=== PATIENT | female | born 1965 | race Caucasian/White ===

== ENCOUNTER 2017-09-21 18:21 | Emergency (ER) | payer OTHER ==
[2017-09-21 19:00] VITALS: BP 157/99; PULSE 72; TEMP 98.1; BMI 25.9
--- NOTE | 2017-09-21 19:12 | PDOC ---
History of Present Illness - General History Source: Patient Exam Limitations: No Limitations - History of Present Illness Initial Comments: 09/21/17 19:42 The patient is a 52 year old female, with a significant past medical history of TIA s/p ASD and IVF filter, who presents to the emergency department with swelling to the right side of her face yesterday. The patient states the swelling has significantly improved since yesterday, however, reports her mother was concerned which prompted her to seek evaluation in the ED. She denies slurred speech. She denies any pain, redness or itching to the area. She denies use of new lotions, soaps, makeup, etc. The patient denies chest pain, shortness of breath, headache and dizziness. The patient denies fever, chills, nausea, vomit, diarrhea and constipation. \ The patient denies dysuria, frequency, urgency and hematuria. PAST MEDICAL HISTORY: TIA s/p ASD and IVF filter (5 years ago) FAMILY HISTORY: no pertinent history SOCIAL HISTORY: Pt lives with family MEDICATIONS: reviewed ALLERGIES: As per nursing notes Review of Systems: General: No fevers or chills, no weakness, no weight loss HEENT: No change in vision. No sore throat,. No ear pain CardioVascular: No chest pain or shortness of breath Respiratory:No cough, or wheezing. Gastrointestinal: no nausea, vomiting, diarrhea or constipation, No rectal bleeding Genitourinary: No dysuria, hematuria, or frequency Musculoskeletal: No joint or muscle pain or swelling Neurologic: No headache, vertigo, dizziness or loss of consciousness Psychiatric: nor depression Skin: No rashes or easy bruising Endocrine: no increased thirst or abnormal weight change Allergic: no skin or latex allergy All other systems reviewed and normal Physical Exam: GENERAL: The patient is awake, alert, and fully oriented, in no acute distress. HEAD: (+) Mild swelling of the right cheek area. No increase in warmth. No erythema. No tenderness. No signs of trauma. EYES: Pupils equal, round and reactive to light, extraocular movements intact, sclera anicteric, conjunctiva clear. EXTREMITIES: Normal range of motion, no edema. NEUROLOGICAL: Normal speech, normal gait. PSYCH: Normal mood, normal affect. SKIN: Warm, Dry, normal turgor, no rashes or lesions noted. <Tejal Villar - Last Filed: 09/21/17 19:42> - General History Source: Patient Exam Limitations: No Limitations - History of Present Illness Initial Comments: A portion of this note was documented by scribe services under my direction. I have reviewed the details of the note, within reason, and agree with the documentation. The case summary and management plan written by me. 09/21/17 20:20 Assessment and plan: This is a 52-year-old female who comes in complaining of some facial swelling yesterday that has mostly resolved by today. Patient was concerned because she thought she saw some asymmetry of her face secondary to the swelling and wanted to make sure wasn't secondary to an underlying neurological problem as she has had a TIA in the past. Patient was reassured that the swelling was the cause of the facial asymmetry that there was no concern for a stroke as she had an ASD that was repaired as well as an IVC filter. There is no evidence or concern at this time for infection. Patient discharged and does have a primary care doctor she can follow-up with if the swelling gets worse she develops any redness or any evidence of an underlying infectious nature to the swelling <Meagan Rodriguez I - Last Filed: 09/21/17 20:22> - General Chief Complaint: Allergic Reaction Stated Complaint: RT SIDE FACIAL SWELLING Time Seen by Provider: 09/21/17 19:11 Past History <Tejal Villar - Last Filed: 09/21/17 19:42> - Past Medical History COPD: No - Suicide/Smoking/Psychosocial Hx Smoking History: Never smoked Have you smoked in the past 12 months: No Information on smoking cessation initiated: No Hx Alcohol Use: No Drug/Substance Use Hx: No Substance Use Type: None <Meagan Rodriguez I - Last Filed: 09/21/17 20:22> - Past Medical History Allergies/Adverse Reactions: Allergies Allergy/AdvReac Type Severity Reaction Status Date / Time No Known Allergies Allergy Verified 09/21/17 18:23 Home Medications: Ambulatory Orders Alprazolam [Xanax] 1 mg PO HS 09/21/17 Aspirin [ASA -] 81 mg PO DAILY 09/21/17 Atorvastatin Ca [Lipitor] 80 mg PO HS 09/21/17 *Physical Exam - Vital Signs Last Vital Signs Temp Pulse Resp BP Pulse Ox 98.1 F 72 20 157/99 97 09/21/17 18:22 09/21/17 18:22 09/21/17 18:22 09/21/17 18:22 09/21/17 18:22 <Tejal Villar - Last Filed: 09/21/17 19:42> - Vital Signs Last Vital Signs Temp Pulse Resp BP Pulse Ox 98.1 F 72 20 157/99 97 09/21/17 18:22 09/21/17 18:22 09/21/17 18:22 09/21/17 18:22 09/21/17 18:22 <Meagan Rodriguez I - Last Filed: 09/21/17 20:22> *DC/Admit/Observation/Transfer - Attestations Scribe Attestion: 09/21/17 19:42 Documentation prepared by Tejal Villar, acting as medical equipment repair technician for Meagan Rodriguez MD <Tejal Villar - Last Filed: 09/21/17 19:42> - Discharge Dispostion Admit: No <Meagan Rodriguez I - Last Filed: 09/21/17 20:22> Diagnosis at time of Disposition: Swelling, cheek - Discharge Dispostion Disposition: HOME Condition at time of disposition: Improved - Patient Instructions Additional Instructions: There is nothing that you need to do other than observe the area to make sure the swelling continues to go down. If the cheek becomes more swollen, red, painful or itchy follow-up with your primary care doctor or return to the ED. Return to the emergency department immediately with ANY new, persistent or worsening symptoms. Continue any medications as previously prescribed by your physician. You should follow up with your primary doctor as soon as possible regarding today's emergency department visit. . Please make sure your doctor reviews the results of your emergency evaluation. Thank you for coming to the Emergency Department today for your care. It was a pleasure to see you today. Please note that your evaluation is INCOMPLETE until you follow-up with your doctor.
== END 2017-09-21 19:53 | disposition home or self-care (01) ==
LOC: FER 18:21
DX: R22.0 Localized swelling, mass and lump, head (principal); Z86.73 Personal history of transient ischemic attack (TIA), and cerebral infarction without residual deficits
CPT/HCPCS: 99281-25